=== PATIENT | male | born 2000 ===

== ENCOUNTER → 2023-11-15 | Outpatient (REF) ==
[2023-11-17 03:07] LABS: HERPES ZOSTER, VARICELLA IgG 213 index (Immune >165); RUBEOLA IgG ANTIBODY >300.0 AU/mL (Immune >16.4)
== END ==
LOC: M LAB 10:18
PROVIDERS: ATTEND Nurse Practitioner Adult Health
DX: Z01.89 Encounter for other specified special examinations (principal)